=== PATIENT | female | born 1990 | race Caucasian/White ===

== ENCOUNTER 2019-02-21 11:44 | Emergency (ER) | payer BC, SELFPAY ==
[2019-02-21 11:48] VITALS: BP 123/98; PULSE 100; RESP 16; TEMP 36.8; O2SAT 96
--- NOTE | 2019-02-21 12:29 | ED.GENADUL_ITS ---
Discharge Plan Disposition Patient Disposition: HOME Condition: Stable Discharge Details Chief Complaint: EarProblem Clinical Impression: Acute streptococcal pharyngitis Primary Care Provider: Hannah Hanson ED Provider: Oralia Rodríguez Home Meds and New Rx's Prescriptions: No Action No Known Home Meds RF: 0 Discharge Instructions Instructions: Pharyngitis (ED) Additional Instructions: Alternate Tylenol and Motrin as needed and directed for pain. Drink plenty of fluids and get plenty of rest. Mainly follow a diet of cool liquids and soft and cool foods. Follow-up with your primary care doctor this week for reevaluation. Return immediately to the emergency department if you develop any worsening or new concerning symptoms. Discharge Data Discharge Date/Time-TO BE ENTERED AT DEPARTURE: 02/21/19 13:05 Discharge Physician: Oralia Rodríguez Medical Decision Making 28-year-old female presents with right ear pain and sore throat with body aches for the past 2 days. She is speaking in full sentences without trismus, drooling, submandibular swelling. She has bilateral tonsillar edema, erythema, exudates. Uvula is midline without evidence of peritonsillar abscess. Lungs clear. Abdomen soft and nontender. Rapid strep positive. Patient given a dose of Decadron and Bicillin injection. She is advised to drink plenty of fluids, get plenty of rest, follow-up with her primary care doctor for reevaluation and to return here at any time if worse. Medical Records Medical records reviewed: Yes I reviewed the patient's medical records. HPI General Mode of arrival: ambulatory . Date/Time Provider Initiated Documentation: 02/21/19 11:56 . Limitations to Documentation: no limitations . Information obtained by: patient . HPI Narrative: Patient is a 28-year-old fem edward presents with right ear pain and sore throat with body aches for the past 2 days. She has been able to eat and drink but with significant pain. She denies any known fevers. She has been taking Aleve and NyQuil for her symptoms. Related Data Home Medications Medication Instructions Recorded Confirmed Unknown [No Known Home Meds] 02/21/19 02/21/19 Allergies Allergy/AdvReac Type Severity Reaction Status Date / Time No Known Allergies Allergy Unverified 02/21/19 11:52 General Stated Complaint: EarProblem ALIN: 3 Review of Systems Review of Systems ROS Unobtainable: All systems reviewed & are unremarkable except as noted in HPI and below Constitutional Constitutional: Reports as per HPI, Reports body ache(s), Denies chills, Reports fatigue and Denies fever(s) Eyes Eyes: Denies blurry vision ENT Ears, Nose, Mouth, and Throat: Denies dizziness, Reports otalgia, Reports sore throat and Denies throat swelling Cardiovascular Cardiovascular: Denies chest pain and Denies dyspnea Respiratory Respiratory: Denies cough and Denies dyspnea Gastrointestinal Gastrointestinal: Denies abdominal pain, Denies diarrhea and Denies vomiting Genitourinary Genitourinary: Denies hematuria and Denies dysuria Musculoskeletal Musculoskeletal: Denies back pain and Denies numbness Integumentary/Breasts Skin/Breast: Denies lesions and Denies rash Neurologic Neurologic: Denies dizziness, Denies focal weakness and Denies numbness Endocrine Endocrine: Reports fatigue Allergic/Immunologic Allergic/Immunologic: Denies throat swelling [facility] Medical History Polycystic ovaries (Inactive 09/29/13) Surgical History No significant past surgical history (Acute) Social History Smoking/Tobacco Use Status: Current every day Tobacco Type: cigarettes Alcohol Intake: never Substance use type: marijuana Do you feel safe in your relationship?: Yes Exam Const General: cooperative, healthy appearing and no acute distress HENMT Head: normal to inspection Ears: hearing grossly normal bilaterally, external ears normal and TM's normal bilaterally General nose exam: external nose normal Face and sinus: normal facial exam Mouth: oral mucosae normal Throat: uvula midline and posterior oropharynx abnormal (Tonsils not touching.) edema (Moderate), erythema (Moderate) and exudates Eyes General: appearance normal, both eyes and all related structures Neck Neck: normal visual inspection, trachea midline, supple, lymphadenopathy (Tender anterior cervical bilaterally) and No submandibular swelling Resp Effort & Inspection: normal respiratory effort and able to speak in complete sentences Auscultation: clear to auscultation bilaterally Cardio Rate: regular rate Rhythm: regular rhythm GI Inspection: normal to inspection Palpation: soft, not firm, no guarding, no pulsatile masses, not rigid and nontender Auscultation: normal bowel sounds Skin General skin exam: no rashes or lesions noted Neuro General: alert, awake and oriented x3 Motor: muscle tone normal throughout Extrem General: normal to inspection and full ROM Psych Appearance: grossly normal Affect: normal affect Course Vital Signs Vital signs: Vital Signs Temperature 98.2 F 02/21/19 11:48 Pulse 100 H 02/21/19 11:48 Respiratory Rate 16 02/21/19 11:48 Blood Pressure 123/98 H 02/21/19 11:48 Pulse Oximetry 96 02/21/19 11:48 Temperature 98.2 F 02/21/19 11:48 Temperature Source Skin 02/21/19 11:48 Pulse 100 H 02/21/19 11:48 Respiratory Rate 16 02/21/19 11:48 Respiratory Effort Non-Labored 02/21/19 11:48 Blood Pressure 123/98 H 02/21/19 11:48 Blood Pressure Position Sitting 02/21/19 11:48 Pulse Oximetry 96 02/21/19 11:48 Oxygen Delivery Method Room Air 02/21/19 11:48 Oxygen Flow Rate 0 02/21/19 11:48 Pain Level 8 02/21/19 11:48 Lab/Test Results Lab/Test Results: POC Strep Test-[facility](Rapid) Start: 02/21/19 12:02 Freq: .Rapid Strep Test Status: Active Protocol: Document 02/21/19 12:02 MMQ (Rec: 02/21/19 12:02 MMQ [id number]) Strep test-[facility](Rapid)-POC POC-Strep test-[facility] (Rapid) Positive POC-Strep test-[facility] (Rapid) Positive
[2019-02-21] MEDS: Dexamethasone 10 MG/ML VIAL PO (12:54)
== END 2019-02-21 13:05 | disposition home or self-care (01) ==
PROVIDERS: Emergency Provider Physician Assistant; PCP Nurse Practitioner
DX: J02.0 Streptococcal pharyngitis (principal)
CPT/HCPCS: 87880; 96372; 99284; J0561; J1100

== ENCOUNTER 2019-03-02 08:38 | Emergency (ER) | payer BC, SELFPAY ==
[2019-03-02 08:45] VITALS: BP 138/82; PULSE 77; RESP 16; TEMP 37.2; O2SAT 97
--- NOTE | 2019-03-02 08:55 | ED.GENADUL_ITS ---
Discharge Plan Disposition Patient Disposition: HOME Condition: Good Discharge Details Chief Complaint: FacialProb Clinical Impression: Dental infection Primary Care Provider: None,None ED Provider: Christine Baum Home Meds and New Rx's Prescriptions: New penicillin V potassium 500 mg tablet 500 mg PO QID 7 Days Qty: 28 RF: 0 Discharge Instructions Instructions: Dental Abscess (ED) Additional Instructions: Encourage hydration. Tylenol and/or ibuprofen as needed for discomfort. Please take the penicillin as prescribed. Even if symptoms improve, please take the entire course. You will need definitive care with dentist, I have attached local list of dentist. I have asked our health care law specialist to help facilitate establishing a primary care provider. If you develop fevers/chills, increased pain, swelling, difficulty swallowing or other new/worsening symptoms please seek care urgently once again. Discharge Data Discharge Date/Time-TO BE ENTERED AT DEPARTURE: 03/02/19 09:30 Medical Decision Making Patient is a 28-year-old female past medical history of active smoking, presenting today with chief complaint of right upper dental pain that began yesterday. States the pain does not radiate. Awoke this morning feeling like the right side of her face was swollen. She feels that there is a large area of swelling rating down towards the neck. However, on exam I do not appreciate this. Does not have any uvular deviation. No tonsillar swelling. No midline shift of her trachea. No palpable swelling is noted. She does have tenderness with palpation at the #1 tooth along the buccal side. No palpable area of fluctuance to suggest a tonsillar abscess. She does have an area where one to ot was pulled, she reports she was seen here historically for dental infection with subsequent removal. Denies any fevers or chills. No sinus pain. No congestion. Patient was concerned this may have been linked to her recent diagnosis of strep pharyngitis. Patient was treated with penicillin and Decadron with good relief of all of her symptoms and she denies any sore throat at this time. No evidence to suggest a persistent infection. Patient will be treated with penicillin. I advised that she will need definitive care with a dentist and will give list of local dentist. Patient does not have a primary care. Have asked her health care law specialist to help establish primary. I encouraged hydration. Advised new/worsening symptoms when to seek care urgently once again. All of her questions and concerns were addressed and she is in agreement this plan. UPT negative HPI General Mode of arrival: ambulatory . Date/Time Provider Initiated Documentation: 03/02/19 08:53 . Limitations to Documentation: no limitations . Information obtained by: patient, family and RN notes reviewed . History of Present Illness 28 year old F presents to the emergency department with the chief complaint of right upper dental pain, described as mild, Quality is described as aching, and is localized to the face and mouth. Patient reports no radiation. Patient started experiencing this day(s) (1) and it has been constant. No relieving factors improve symptom(s), Eating worsens symptoms . Patient notes no other symptoms.; denies cough, diaphoresis, fever/chills, loss of appetite, nausea/vomiting, rash and shortness of breath. Patient did receive the following treatments prior to arrival, none Related Data Home Medications Medication Instructions Recorded Confirmed penicillin V potassium 500 mg PO QID 7 Days #28 tab 03/02/19 Previous Rx's Medication Instructions Recorded penicillin V potassium 500 mg PO QID 7 Days #28 tab 03/02/19 Allergies Allergy/AdvReac Type Severity Reaction Status Date / Time No Known Allergies Allergy Unverified 03/02/19 08:51 General Stated Complaint: FacialProb ALIN: 3 Review of Systems Constitutional Constitutional: Reports as per HPI, Denies chills, Denies fatigue, Denies fever(s), Denies headache(s) and Denies poor appetite Eyes Eyes: Denies change in vision and Denies irritation ENT Ears, Nose, Mouth, and Throat: Reports as per HPI, Reports dental pain, Denies dysphagia, Denies dizziness, Denies dry mouth, Denies ear discharge, Denies otalgia, Reports facial pain, Denies headache(s), Denies hoarseness, Denies lip swelling, Denies nasal congestion, Denies odynophagia and Denies sore throat Cardiovascular Cardiovascular: Reports as per HPI and Denies chest pain Respiratory Respiratory: Reports as per HPI and Denies cough Gastrointestinal Gastrointestinal: Reports as per HPI, Denies dysphagia, Denies nausea, Denies odynophagia and Denies vomiting Integumentary/Breasts Skin/Breast: Reports as per HPI, Denies erythema, Denies rash and Denies skin pain Neurologic Neurologic: Reports as per HPI, Denies dizziness and Denies headache(s) Endocrine Endocrine: Denies fatigue Allergic/Immunologic Allergic/Immunologic: Denies lip swelling [facility] Medical History Polycystic ovaries (Inactive 09/29/13) Surgical History No significant past surgical history (Acute) Social History Smoking/Tobacco Use Status: Current every day Tobacco Type: cigarettes Alcohol Intake: never Drug use: Occasionally Substance use type: marijuana Do you feel safe at home: Yes Do you feel safe in your relationship?: Yes Exam Const General: cooperative, healthy appearing, comfortable, no acute distress, well developed and well groomed Nutritional Appearance: average body habitus and well nourished Orientation: alert and awake [facility] Head: normal to inspection, normocephalic and atraumatic Ears: hearing grossly normal bilaterally, external ears normal and TM's normal bilaterally General nose exam: external nose normal and nares normal Face and sinus: normal facial exam, sinuses nontender and face symmetric Mouth: oral mucosae normal, lip normal, tongue normal, salivary ducts normal, oropharynx normal and moist mucous membranes Teeth and gingiva: dentition normal and gingiva abnormal tender (buccal side #1 tooth) Throat: posterior oropharynx normal, tonsils normal and uvula midline Eyes General: appearance normal, both eyes and all related structures Neck Neck: normal visual inspection, full ROM, no lymphadenopathy, supple and no anterior neck swelling Resp Effort & Inspection: normal respiratory effort, able to speak in complete sentences and no respiratory distress Auscultation: clear to auscultation bilaterally, no rales, no rhonchi and no wheezes Cardio Rate: regular rate Rhythm: regular rhythm Heart Sounds: S1 normal and S2 normal Skin General skin exam: no rashes or lesions noted Trauma: no lacerations or abrasions Neuro General: alert and awake Cognition: normal cognition Speech: speech normal Gait: normal gait Psych Appearance: grossly normal and well kempt Mental Status: mental status grossly normal Speech and Movement: speech and movement normal Course Vital Signs Vital signs: Vital Signs Temperature 37.2 C 03/02/19 08:45 Pulse 77 03/02/19 08:45 Respiratory Rate 16 03/02/19 08:45 Blood Pressure 138/82 09/30/19 08:45 Pulse Oximetry 97 03/02/19 08:45 Temperature 37.2 C 03/02/19 08:45 Temperature Source Skin 03/02/19 08:45 Pulse 77 03/02/19 08:45 Respiratory Rate 16 03/02/19 08:45 Respiratory Effort Non-Labored 03/02/19 08:50 Blood Pressure 138/82 03/02/19 08:45 Blood Pressure Position Sitting 03/02/19 08:45 Pulse Oximetry 97 03/02/19 08:45 Oxygen Delivery Method Room Air 03/02/19 08:45 Oxygen Flow Rate 0 03/02/19 08:45 Pain Level 0 03/02/19 08:51
[2019-03-02 09:21] VITALS: BP 138/82; PULSE 77; RESP 16; TEMP 37.2; O2SAT 97
== END 2019-03-02 09:30 | disposition home or self-care (01) ==
PROVIDERS: Emergency Provider Physician Assistant
DX: K04.7 Periapical abscess without sinus (principal)
CPT/HCPCS: 81025; 99283

== ENCOUNTER 2019-11-17 14:25 | Outpatient (REF) | payer BC, SELFPAY ==
--- NOTE | 2019-11-17 13:45 | PAPFT_PTH ---
PATIENT: Ksenia Matute LOC: [facility] U#:[id number] AGE/SX: 29/F ROOM: RE11/17/[address]: Sita Pinedo DO : 1990 BED: DIS: 11/17/2019 SPEC #: [id number] RECD: 11/17/19 15:26 STATUS: ANGÉLICA REQ #: [id number] ASHLEY: 11/17/19 13:[address]: Sita Pinedo DEPT: [facility] Cytology RECD BY: Margaux Michaels ENTERED: 11/17/19 15:26 SP TYPE: PAPFT OTHR DR: None Tissues: 1 - CX/ENDOCX FOR PAP SMEARS Procedures: PAP THIN PREP/[facility]VM Screening HPV DNA PROBE Comments: [id number] (CHLAMYDIA/GC)
[2019-11-18 15:04] LABS: Chlamydia Result Negative (Negative); GC Result Negative (Negative)
== END 2019-11-17 14:45 ==
LOC: LBN 14:25
PROVIDERS: Visit Provider Obstetrics & Gynecology
DX: Z11.3 Encounter for screening for infections with a predominantly sexual mode of transmission; Z12.4 Encounter for screening for malignant neoplasm of cervix; R87.610 Atypical squamous cells of undetermined significance on cytologic smear of cervix (ASC-US)
CPT/HCPCS: 87491; 87591; 88142; 87480; 87510; 87624; 87660

== ENCOUNTER 2020-03-01 07:27 | Outpatient (CLI) | payer BC, SELFPAY ==
[2020-03-03 19:36] LABS: Patient Race White; SARS-CoV-2 RNA Undetected (Undetected); SARS-CoV-2 Specimen Source Nasopharynx
== END 2020-03-01 07:47 ==
PROVIDERS: Visit Provider Family Medicine
DX: Z11.59 Encounter for screening for other viral diseases (principal)
CPT/HCPCS: U0003

== ENCOUNTER 2020-03-30 09:18 | Outpatient (CLI) | payer BC, SELFPAY ==
--- NOTE | 2020-03-30 | DI.RAD_ITS ---
EXAM: XR KNEE RT 3V AP,LAT,DOUG CLINICAL HISTORY: RT KNEE PAIN,[id number] TECHNIQUE: COMPARISON: No exams were available for comparison FINDINGS: Three views were obtained. There is no gross knee joint effusion. Bones and soft tissues of the kne e appear intact. Cartilaginous joint spaces appear well maintained. IMPRESSION: Negative examination of the knee. RADIATION DOSE DELIVERED: Total DLP
== END 2020-03-30 09:38 ==
PROVIDERS: PCP Nurse Practitioner Family; Visit Provider Nurse Practitioner Family
DX: M25.561 Pain in right knee (principal)
CPT/HCPCS: 73562

== ENCOUNTER 2020-04-01 12:17 | Outpatient (REF) | payer BC, SELFPAY ==
[2020-04-01 19:58] LABS: HCT 43.7 % (36.0-46.0); HGB 14.6 g/dL (11.2-15.7); MCH 27.7 pg (27.0-33.0); MCHC 33.4 % (32.0-36.0); MCV 82.8 fL (80-95); MPV 9.8 fL (8.0-11.0); Platelet Count 384 10^3/uL (130-400); RBC 5.28 10^6/uL (3.93-5.22); RDW 12.4 % (11.7-14.6); RDW-SD 37.5 fL
[2020-04-01 20:24] LABS: Anion Gap 9.4 mmol/L (3-11); BUN 10 mg/dL (7-18); CO2 25.6 mmol/L (21.0-32.0); CREATININE 0.68 mg/dL (0.55-1.02); Calcium 8.7 mg/dL (8.5-10.1); Calculated LDL 82 mg/dL (<100); Chloride 103 mmol/L (98-107); Cholesterol 153 mg/dL (<200); Glucose 83 mg/dL (74-106); HDL Cholesterol 32 mg/dL (40-60); Potassium 3.8 mmol/L (3.5-5.1); Sodium 138 mmol/L (136-145); Triglyceride 198 mg/dL (<150)
== END 2020-04-01 12:37 ==
LOC: NCHCN 12:17
PROVIDERS: PCP Nurse Practitioner Family; Visit Provider Nurse Practitioner Family
DX: Z00.00 Encounter for general adult medical examination without abnormal findings (principal)
CPT/HCPCS: 80048; 80061; 85027

== ENCOUNTER 2021-01-02 14:37 | Outpatient (REF) | payer BC, SELFPAY ==
--- NOTE | 2021-01-02 14:00 | PAPFT_PTH ---
PATIENT: Ksenia Matute LOC: [facility] U#:[id number] AGE/SX: 30/F ROOM: RE01/02/[address]: LASHAWN Ocasio : 1990 BED: DIS: 01/02/2021 SPEC #: [id number] RECD: 01/02/21 17:44 STATUS: ANGÉLICA REQ #: [id number] ASHLEY: 01/02/21 14:[address]: Lakeshia Kay DEPT: [facility] Cytology RECD BY: Margaux Michaels ENTERED: 01/02/21 17:44 SP TYPE: PAPFT OTHR DR: Desirae Hahn Tissues: 1 - CX/ENDOCX FOR PAP SMEARS Procedures: PAP THIN PREP/UVM Screening HPV DNA PROBE Comments: [id number]
[2021-01-03 15:00] LABS: Chlamydia Result Negative (Negative); GC Result Negative (Negative)
== END 2021-01-02 14:38 | disposition home or self-care (01) ==
LOC: LBN 14:37
PROVIDERS: PCP Nurse Practitioner Family; Visit Provider Nurse Practitioner Family
DX: Z11.3 Encounter for screening for infections with a predominantly sexual mode of transmission (principal); Z12.4 Encounter for screening for malignant neoplasm of cervix; Z87.42 Personal history of other diseases of the female genital tract; Z11.51 Encounter for screening for human papillomavirus (HPV); A59.01 Trichomonal vulvovaginitis
CPT/HCPCS: 87491; 87591; 88142; 87624

== ENCOUNTER 2021-07-03 15:01 | Outpatient (REF) | payer BC, SELFPAY ==
[2021-07-04 17:53] LABS: Chlamydia Result Negative (Negative); GC Result Negative (Negative)
== END 2021-07-03 15:02 | disposition home or self-care (01) ==
LOC: LBN 15:01
PROVIDERS: PCP Nurse Practitioner Family; Visit Provider Nurse Practitioner Family
DX: Z11.3 Encounter for screening for infections with a predominantly sexual mode of transmission (principal)
CPT/HCPCS: 87491; 87591

== ENCOUNTER 2021-10-19 09:57 | Outpatient (REF) | payer BC, SELFPAY ==
[2021-10-20 11:33] LABS: COVID-19 RT-PCR UVMMC Result Negative (Negative)
== END 2021-10-19 09:58 | disposition home or self-care (01) ==
LOC: LBN 09:57
PROVIDERS: PCP Nurse Practitioner Family; Visit Provider Physician Assistant Medical
DX: Z20.822 Contact with and (suspected) exposure to COVID-19 (principal); R09.81 Nasal congestion
CPT/HCPCS: U0003

== ENCOUNTER 2023-05-02 02:14 | Outpatient (CLI) | payer BC, SELFPAY ==
[2023-05-03 18:07] LABS: Estradiol 38 pg/mL (See Note)
[2023-05-03 21:14] LABS: Prolactin 8.6 ng/mL (See Note)
[2023-05-03 21:17] LABS: FSH 9.8 mIU/mL (See Note)
[2023-05-06 14:22] LABS: Antimullerian Hormone 2.8 ng/mL (0.15-7.5)
== END 2023-05-02 02:15 | disposition home or self-care (01) ==
LOC: LBO 02:14
PROVIDERS: PCP Nurse Practitioner Family; Visit Provider Obstetrics & Gynecology Gynecology
DX: N91.5 Oligomenorrhea, unspecified (principal); Z31.9 Encounter for procreative management, unspecified
CPT/HCPCS: 36415; 82670; 83001; 83520; 84146

== ENCOUNTER 2023-06-24 10:36 | Outpatient (REF) | payer BC, SELFPAY ==
[2023-06-25 13:15] LABS: Chlamydia Result Negative (Negative); GC Result Negative (Negative)
== END 2023-06-24 10:37 | disposition home or self-care (01) ==
LOC: LBN 10:36
PROVIDERS: Visit Provider Advanced Practice Midwife
DX: N89.8 Other specified noninflammatory disorders of vagina (principal); Z11.3 Encounter for screening for infections with a predominantly sexual mode of transmission
CPT/HCPCS: 87491; 87591; 87480; 87510; 87660

== ENCOUNTER 2023-06-24 19:15 | Outpatient (CLI) | payer BC, SELFPAY ==
[2023-06-24 12:10] LABS: TSH (W/Ref FT4) 1.16 uIU/mL (0.36-3.74)
[2023-06-24 18:15] LABS: Hepatitis B Surface Ag Negative (Negative)
[2023-06-24 18:46] LABS: HIV-1/2 Ag & Ab Screen Negative (Negative)
[2023-06-24 20:30] LABS: Hepatitis C Ab w Rflx HCV PCR Reactive (Negative)
[2023-06-26 11:00] LABS: HCV RNA Qualitative Undetected (Undetected)
[2023-06-26 15:48] LABS: Syphilis IgG w/Reflex Nonreactive (Nonreactive)
== END 2023-06-24 19:16 | disposition home or self-care (01) ==
LOC: LBO 19:16
PROVIDERS: Visit Provider Advanced Practice Midwife
DX: Z34.91 Encounter for supervision of normal pregnancy, unspecified, first trimester (principal)
CPT/HCPCS: 36415; 86803; 87340; 87389; 87522; 84443; 86780

== ENCOUNTER 2023-06-25 14:00 | Outpatient (CLI) | payer BC, SELFPAY ==
[2023-06-25 13:36] LABS: Abs Immature Grans 0.02 10^3/uL (0.0-0.06); Absolute Basophil Count 0.09 10^3/uL (0.0-0.2); Absolute Lymphocyte Count 4.24 10^3/uL (1.2-3.4); Absolute Monocyte Count 0.76 10^3/uL (0.1-0.8); Absolute Neutrophil Count 4.82 10^3/uL (1.2-6.7); Basophils % 0.9; Eosinophils % 4.8; HCT 42.4 % (36.0-46.0); HGB 13.9 g/dL (11.2-15.7); Immature Grans % 0.2; Lymphocytes % 40.7; MCHC 32.8 % (32.0-36.0); MCV 83 fL (80-95); MPV 9.1 fL (8.0-11.0); Monocytes % 7.3; Neutrophils % 46.1; Platelet Count 362 10^3/uL (130-400); RBC 5.14 10^6/uL (3.93-5.22); RDW 12.3 % (11.7-14.6); RDW-SD 37.7 fL; WBC 10.43 10^3/uL (4.4-10.8)
[2023-06-25 14:05] LABS: ALT 38 U/L (14-59); AST 19 U/L (15-37); Albumin 3.8 g/dL (3.4-5.0); Alkaline Phosphatase 79 U/L (46-116); Anion Gap 7.3 mmol/L (3-11); BUN 11 mg/dL (7-18); Bilirubin, Total 0.2 mg/dL (0.2-1.0); CO2 30.7 mmol/L (21.0-32.0); CREATININE 0.8 mg/dL (0.55-1.02); Chloride 103 mmol/L (98-107); Estimated GFR 98.48 (mL/min/1.73m2); Glucose 104 mg/dL (74-106); Potassium 3.8 mmol/L (3.5-5.1); Sodium 141 mmol/L (136-145); Total Protein 7.6 g/dL (6.4-8.2)
== END 2023-06-25 14:01 | disposition home or self-care (01) ==
LOC: LBO 14:00
PROVIDERS: Advanced Practice Midwife; Visit Provider Advanced Practice Midwife
DX: R76.8 Other specified abnormal immunological findings in serum (principal)
CPT/HCPCS: 36415; 80053; 85025

== ENCOUNTER 2023-11-20 08:52 | Outpatient (CLI) | payer BC, SELFPAY ==
[2023-11-20 09:53] LABS: Hemoglobin A1C 5.8 % (<5.7)
[2023-11-20 10:25] LABS: Anion Gap 10.8 mmol/L (3-11); BUN 10 mg/dL (7-18); CO2 27.2 mmol/L (21.0-32.0); CREATININE 0.6 mg/dL (0.55-1.02); Calcium 9.1 mg/dL (8.5-10.1); Calculated LDL 94 mg/dL (<100); Chloride 103 mmol/L (98-107); Cholesterol 161 mg/dL (<200); Estimated GFR 119.97 (mL/min/1.73m2); Glucose 103 mg/dL (74-106); HDL Cholesterol 41 mg/dL (40-60); Potassium 3.7 mmol/L (3.5-5.1); Sodium 141 mmol/L (136-145); Triglyceride 134 mg/dL (<150)
[2023-11-21 09:27] LABS: Hepatitis C Ab w Rflx HCV PCR Reactive (Negative)
[2023-11-21 10:04] LABS: HIV-1/2 Ag & Ab Screen Negative (Negative)
[2023-11-21 13:36] LABS: HCV RNA Qualitative Undetected (Undetected)
== END 2023-11-20 08:53 | disposition home or self-care (01) ==
LOC: LBO 08:52
PROVIDERS: PCP Nurse Practitioner Family; Visit Provider Nurse Practitioner Family
DX: Z11.3 Encounter for screening for infections with a predominantly sexual mode of transmission (principal); Z00.00 Encounter for general adult medical examination without abnormal findings; R76.8 Other specified abnormal immunological findings in serum; I10 Essential (primary) hypertension
CPT/HCPCS: 36415; 80048; 80061; 86803; 87389; 87522; 83036

== ENCOUNTER 2023-11-27 13:39 | Outpatient (CLI) | payer BC, SELFPAY ==
[2023-11-27 13:29] LABS: HCT 43.4 % (36.0-46.0); HGB 14.5 g/dL (11.2-15.7); MCH 27.5 pg (27.0-33.0); MCHC 33.4 % (32.0-36.0); MCV 82 fL (80-95); Platelet Count 345 10^3/uL (130-400); RBC 5.27 10^6/uL (3.93-5.22); RDW 12.6 % (11.7-14.6); RDW-SD 37.9 fL; WBC 9.46 10^3/uL (4.4-10.8)
[2023-11-27 14:03] LABS: ALT 46 U/L (14-59); AST 26 U/L (15-37); Alkaline Phosphatase 77 U/L (46-116); Bilirubin, Direct 0.1 mg/dL (0.0-0.2); Bilirubin, Total 0.31 mg/dL (0.2-1.0); Total Protein 7.5 g/dL (6.4-8.2)
== END 2023-11-27 13:40 | disposition home or self-care (01) ==
LOC: LBO 13:39
PROVIDERS: PCP Nurse Practitioner Family; Visit Provider Nurse Practitioner Family
DX: B19.20 Unspecified viral hepatitis C without hepatic coma (principal)
CPT/HCPCS: 36415; 80076; 85027

== ENCOUNTER 2023-12-18 11:22 | Outpatient (REF) | payer BC, SELFPAY ==
--- NOTE | 2023-12-18 11:10 | PAPFT_PTH ---
PATIENT: Ksenia Matute LOC: [facility] U#:[id number] AGE/SX: 33/F ROOM: RE12/18/[address]: Fiona Saldivar NP : 1990 BED: DIS: 12/18/2023 SPEC #: [id number] RECD: 12/18/23 13:05 STATUS: ANTHONYAlycia RENani #: [id number] ASHLEY: 12/18/23 11:[address]: Fiona Saldivar NP DEPT: [facility] Cytology RECD BY: Margaux Michaels ENTERED: 12/18/23 13:06 SP TYPE: PAPFT OTHR DR: Jazmín Motta APRN Tissues: 1 - CX/ENDOCX FOR PAP SMEARS Procedures: PAP THIN PREP/UVM Screening HPV DNA PROBE Comments: [id number] (HPV 16 & 18/45) (CHLAMYDIA/GC)
[2023-12-19 13:01] LABS: Chlamydia Result Negative (Negative); GC Result Negative (Negative)
== END 2023-12-18 11:23 | disposition home or self-care (01) ==
LOC: LBN 11:22
PROVIDERS: PCP Nurse Practitioner Family; Visit Provider Nurse Practitioner Women's Health
DX: N76.0 Acute vaginitis (principal); Z01.419 Encounter for gynecological examination (general) (routine) without abnormal findings; N91.2 Amenorrhea, unspecified; Z11.3 Encounter for screening for infections with a predominantly sexual mode of transmission; Z12.4 Encounter for screening for malignant neoplasm of cervix
CPT/HCPCS: 87491; 87591; 88142; 87480; 87510; 87624; 87660

== ENCOUNTER 2023-12-25 01:25 | Outpatient (CLI) | payer BC, SELFPAY ==
[2023-12-25 19:18] LABS: HIV-1/2 Ag & Ab Screen Negative (Negative)
[2023-12-26 22:46] LABS: Syphilis IgG w/Reflex Nonreactive (Nonreactive)
== END 2023-12-25 01:26 | disposition home or self-care (01) ==
LOC: LBO 01:25
PROVIDERS: PCP Nurse Practitioner Family; Visit Provider Nurse Practitioner Women's Health
DX: Z11.3 Encounter for screening for infections with a predominantly sexual mode of transmission (principal); K76.0 Fatty (change of) liver, not elsewhere classified; Z23 Encounter for immunization; I10 Essential (primary) hypertension; Z68.33 Body mass index [BMI] 33.0-33.9, adult; B19.20 Unspecified viral hepatitis C without hepatic coma
CPT/HCPCS: 36415; 87389; 86780

== ENCOUNTER 2024-04-22 02:35 | Outpatient (CLI) | payer BC, SELFPAY ==
[2024-04-22 10:18] LABS: Iron 55 ug/dL (50-170); Total Iron Binding Capacity 335 ug/dL (250-450); Transferrin Sat 16 % (15-50)
[2024-04-22 18:28] LABS: HBs Antibody, Quant 487.2 mIU/mL (See Note); Hepatitis B Surface Ab Positive (See Note)
[2024-04-22 18:39] LABS: Hepatitis B Surface Ag Negative (Negative)
[2024-04-23 11:12] LABS: Tissue Transglutaminase IgA <4.0 CU (<20.0)
== END 2024-04-22 02:36 | disposition home or self-care (01) ==
LOC: LBO 02:35
PROVIDERS: PCP Nurse Practitioner Family; Visit Provider Nurse Practitioner Family
DX: B19.20 Unspecified viral hepatitis C without hepatic coma (principal); K76.0 Fatty (change of) liver, not elsewhere classified
CPT/HCPCS: 36415; 86706; 87340; 83540; 83550

== ENCOUNTER 2024-04-22 02:59 | Outpatient (CLI) | payer BC, SELFPAY ==
--- NOTE | 2024-04-22 10:07 | W.NUTRFU ---
Date of service: 04/22/24 Time of Service: 09:00 Nutrition Note NOTE: Kristin comes to referred nutrition appt to help support her goal to lose weight. With the help of riccardo she has been losing weight since this summer. Between her February and April provider visits lost 14lbs. BMI at 04/15 provider visit was 30.0 A1C was 5.8% 11/20/23 - reports family history of diabetes with grandparents Suffers from gallbladder pain and often alters her eating patterns to avoid pain. Usual pattern is 1-2 meals a day - Breakfast and dinner, with breakfast only being something like a banana with coffee (uses hazelnut creamer but unsure what's in it) She shares she is picky with a lot of foods - avoids most dairy except Leander cheese, dislikes meat but will eat chicken seldomely, dislikes eggs, tomatoes and tomato products affect her throat, does not like legumes or seafood and many other foods. She doesn't drink water routinely and identifies that this needs to be addressed - she drinks green tea and coffee. Ksenia currently does not take any vitamin supplements. Her current diet pattern is assessed at low in protein, low in fiber and low in essential nutrients (vitamin D, vitamin C, magnesium, potassium, calcium, B12). Suggested pt take MVI (that contains iron and iodine) to help increase micronutrient due to limited dietary variety. Also suggested additional vitamin D3 with 4,000IU Mar-October and 2,000IU October-Mar months. We reviewed recommendations for calories and reviewed macros as well - suggest 1600kcals, 160g total carbs, 50g fat, 120 protein. We reviewed resources and strategies for menu planning towards above goals and suggested working on slowly expanding variety to improve nutrient intake. Gave her my contact info should she desire follow up for more menu planning support, or has any questions. Time Spent in Nutritional Counseling and Treatment: 50 minutes
== END 2024-04-22 03:00 | disposition home or self-care (01) ==
LOC: DS 02:59
PROVIDERS: PCP Nurse Practitioner Family; Visit Provider Dietitian, Registered
DX: Z71.3 Dietary counseling and surveillance (principal); K21.9 Gastro-esophageal reflux disease without esophagitis
CPT/HCPCS: 00123; 97802

== ENCOUNTER 2024-04-24 10:25 | Outpatient (REF) | payer BC, SELFPAY ==
[2024-04-27 12:00] LABS: Chlamydia Result Negative (Negative); GC Result Negative (Negative)
== END 2024-04-24 10:26 | disposition home or self-care (01) ==
LOC: LBN 10:25
PROVIDERS: PCP Nurse Practitioner Family; Visit Provider Obstetrics & Gynecology Gynecology
DX: N89.8 Other specified noninflammatory disorders of vagina (principal); N92.6 Irregular menstruation, unspecified; N91.3 Primary oligomenorrhea
CPT/HCPCS: 87491; 87591; 87480; 87510; 87660

== ENCOUNTER 2024-06-29 02:03 | Outpatient (CLI) | payer BC, SELFPAY ==
--- NOTE | 2024-06-29 07:00 | DI.US_ITS ---
Exam(s) US ABDOMEN LIMITED EXAM: US ABDOMEN LIMITED CLINICAL HISTORY: HX gallstones,CHOLELITHIASIS,K80.20 TECHNIQUE: Ultrasound abdomen performed using standard protocol. COMPARISON: CT CHEST FOR PE, ABD PELVIS W from 07/26/2017 US US ABDOMEN LIMITED from 12/04/2023 FINDINGS: PANCREAS: Normal where visualized. LIVER: The liver shows diffuse increased echogenicity consistent with fatty infiltration. Hepatopeta l flow in the Portal Vein. The liver measures in 14.5 cm length. No evidence of a hepatic mass. GALLBLADDER:There is a non mobile gallstones seen in the fundus measuring 1.7 cm. No evidence of wal l thickening. No pericholecystic fluid identified. The gallbladder is contracted. BILIARY SYSTEM: Common bile duct measures < 7 mm. No intrahepatic biliary ductal dilation. FAGAN'S SIGN: Negative. RIGHT KIDNEY: Kidney is normal in size. There are echogenic foci seen in the kidneys consistent with nonobstructing stones. No evidence of hydronephrosis. There are right renal cysts present. These c an be visualized on the CT scan of the abdomen and pelvis. The largest measures 3.6 x 2.3 x 2.6 cm. The smaller measures 2.1 x 1.7 x 1.7 cm. No follow-up is recommended. ASCITES: None seen. IMPRESSION: 1. Immobile gallstone in the fundus of the gallbladder measuring 1.7 cm. There is no biliary ductal dilatation and there was a negative sonographic Fagan sign. 2. Fatty infiltration of the liver. DATA REPOSITORY:
--- NOTE | 2024-06-29 07:00 | DI.RAD_ITS ---
Exam(s) XR LUMBAR SPINE COMPLETE EXAM: XR LUMBAR SPINE COMPLETE CLINICAL HISTORY: pain after meeting w/chiropractor,LOW BACK PAIN,M54.50. TECHNIQUE: 2D digital imaging was performed of the lumbar spine. Five images were obtained. AP, la teral, right oblique, left oblique and L5-S1 spot views were obtained. COMPARISON: No exams were available for comparison FINDINGS: BONES: No fracture or destructive lesion. There are small endplate osteophytes seen at the L2-3 and L 3-L4 levels. No facet hypertrophy identified. DISKS: Intervertebral disc spaces are maintained. ALIGNMENT: Lumbar spinal alignment is within normal limits. No spondylolysis or spondylolisthesis. SOFT TISSUE: Normal. IMPRESSION: No acute abnormality. Mild degenerative changes seen in the lumbar spine. DATA REPOSITORY: RADIATION DOSE DELIVERED:
== END 2024-06-29 02:23 ==
LOC: DI 02:03
PROVIDERS: PCP Nurse Practitioner Family; Visit Provider Nurse Practitioner Family
DX: M54.50 Low back pain, unspecified (principal); K80.20 Calculus of gallbladder without cholecystitis without obstruction
CPT/HCPCS: 72110; 76705

== ENCOUNTER 2024-09-10 14:49 | Outpatient (REF) | payer BC, SELFPAY | END 2024-09-10 14:50 | disposition home or self-care (01) | LOC: LBN 14:49 | PROVIDERS: PCP Nurse Practitioner Family; Visit Provider Obstetrics & Gynecology | DX: N89.8 Other specified noninflammatory disorders of vagina (principal) | CPT/HCPCS: 87480; 87510; 87660 ==